=== PATIENT | male | born 1940 | race Caucasian/White ===

== ENCOUNTER → 2016-10-08 | Outpatient (CLI) | payer MEDICARE, BC | END | disposition home or self-care (01) | LOC: NC 09:09 | PROVIDERS: ATTEND Family Medicine | DX: I11.0 Hypertensive heart disease with heart failure (principal); I50.9 Heart failure, unspecified; J44.9 Chronic obstructive pulmonary disease, unspecified; M10.9 Gout, unspecified; Z12.5 Encounter for screening for malignant neoplasm of prostate | CPT/HCPCS: 80053; 80061; 80162; 83880; 84443; 84550; 85025; G0103 ==

== ENCOUNTER → 2017-07-14 | Outpatient (CLI) | payer MEDICARE, BC | END | disposition home or self-care (01) | LOC: NC 09:53 | PROVIDERS: ATTEND Family Medicine | DX: I11.0 Hypertensive heart disease with heart failure (principal); I50.9 Heart failure, unspecified; I48.91 Unspecified atrial fibrillation; N42.9 Disorder of prostate, unspecified; Z12.5 Encounter for screening for malignant neoplasm of prostate | CPT/HCPCS: 80053; 80061; 80162; 85025; G0103 ==

== ENCOUNTER 2017-09-05 07:41 | Inpatient (IN) | payer MEDICARE ==
[2017-09-05] MEDS ORDERED: IBUPROFEN 200 MG TAB PO ONE (07:56)
[2017-09-05] MEDS ORDERED: OSELTAMIVIR 75 MG CAP PO ONE (08:47)
[2017-09-05] MEDS ORDERED: OSELTAMIVIR 75 MG CAP ONE (08:48)
--- NOTE | 2017-09-05 09:14 | RAD ---
EXAM DESCRIPTION: Chest,2 Views CLINICAL HISTORY: Shortness of breath, fever COMPARISON: January 09, 2016 FINDINGS: Frontal and lateral views of the chest. Postsurgical changes with median sternotomy wires. Dual-lead left chest cardiac pacemaker in similar position. Cardiac silhouette shows borderline cardiomegaly without congestive failure. Coronary artery stent is noted. Lung volumes are hyperexpanded, compatible with COPD changes. Prominent interstitial markings are seen bilaterally, most prominent in the right lower lung zone. This most likely represent chronic interstitial scarring. Underlying infiltrate cannot be excluded. Osteopenia and degenerative changes of the thoracic spine. IMPRESSION: 1. Borderline cardiomegaly without congestive failure. 2. COPD changes. 3. Prominent interstitial markings, most prominent in the right lower lung zone. This most likely represent chronic interstitial scarring. Underlying infiltrate cannot be excluded. 4. Osteopenia and degenerative changes of the thoracic spine. Electronically signed by: Ulices Anaya MD 09/05/2017 9:14 AM [employer]
[2017-09-05] MEDS ORDERED: predniSONE 20 MG TAB PO ONE (09:30)
[2017-09-05] MEDS ORDERED: cefTRIAXone SODIUM 1 GM in SODIUM CHL 0.9% 50ML MIN-BAG+ 50 ML IVPB ONE (09:31)
[2017-09-05] MEDS ORDERED: cefTRIAXone SODIUM 1 GM VIAL ONE (09:35)
[2017-09-05] MEDS ORDERED: SODIUM CHL 0.9% 50ML MIN-BAG+ 50 ML IVPB ONE (09:36)
--- NOTE | 2017-09-05 09:38 | ED.PDOC ---
History of Present Illness - General Chief Complaint: Respiratory Problem Stated Complaint: SOB Time Seen by Provider: 09/05/17 07:46 Source: patient, family Exam Limitations: no limitations - History of Present Illness Initial Comments: the patient is a 76-year-old male presenting to the emergency room secondary to progressive symptoms over the last 24 hours including body aches, mild headache, generalized weakness, a rattly cough, and a runny nose. He does have very significant comorbidities. He does have advanced COPD and is oxygen dependent. He did just have 2 breathing treatments prior to his arrival here. The patient reports he did have a little bit of chest pain yesterday but he also does have a long-standing history of stable angina. He is not having any chest pain today. He has not thrown up. He has been compliant with his medications. 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 The patient has had multiple admissions for COPD and pneumonia Timing/Duration: 24 hours Severity: moderate Improving Factors: nothing Worsening Factors: nothing Associated Symptoms: cough, fever/chills, headaches, loss of appetite, malaise, shortness of breath, weakness Allergies/Adverse Reactions: Allergies Ciprofloxacin [From Cipro] Allergy (Verified 09/05/17 07:55) Penicillins Allergy (Verified 09/05/17 07:55) Home Medications: Ambulatory Orders Torsemide 20 mg PO DAILY 06/18/13 Spironolactone [Aldactone] 25 mg PO DAILY #0 tab 06/21/13 Calcium Carbonate-Vitamin D [Calcium 500-125 mg-Unit] 1 tab PO DAILY #0 Cholecalciferol [Vitamin D-3] 1,000 unit PO DAILY 05/16/15 Isosorbide Mononitrate [Imdur] 30 mg PO BID 05/16/15 Formoterol Fumarate [Perforomist] 20 mcg IN BID 06/07/15 Nitroglycerin [Nitrostat] 0.4 mg SL PRN PRN 06/07/15 Polyethylene Glycol 3350 [Miralax] 17 gm PO BEDTIME 06/07/15 Budesonide (Inhalation) [Budesonide] 0.5 mg IN RTBID 12/18/15 Digoxin [Lanoxin Tab] 0.25 mg PO DAILY@1200 #0 tab 01/14/16 Docusate Sodium [Colace] 100 mg PO DAILY #0 cap 01/14/16 LORazepam [Ativan] 0.5 mg PO Q8H PRN #0 tab 01/14/16 predniSONE 10 mg PO DAILY #0 tab 01/14/16 Alendronate Sodium [Fosamax] 70 mg PO WKLY 09/05/17 Allopurinol 300 mg PO DAILY 09/05/17 Apixaban [Eliquis] 2.5 mg PO BID 09/05/17 Diltiazem HCl [Dilt-Xr] 180 mg PO BID 09/05/17 Dimenhydrinate [Dramamine] 50 mg PO PRN 09/05/17 Gabapentin 300 mg PO BEDTIME 09/05/17 Guaifenesin [Mucinex] 600 mg PO PRN PRN 09/05/17 HYDROcodone 5MG/APAP 325MG [[place] 5/325] 0 ea PO .Q4H PRN 09/05/17 Ipratropium [place] 0.02 % IN QID 09/05/17 Magnesium 1 tab PO DAILY 09/05/17 Niacin [Niacin ER] 500 mg PO DAILY 09/05/17 Potassium Chloride Tab [K-Dur] 10 meq PO DAILY 09/05/17 Review of Systems - Review of Systems Constitutional: States: fever, malaise, weakness EENTM: States: nose congestion. Denies: throat pain Respiratory: States: cough, short of breath, wheezing Cardiology: States: no symptoms reported Gastrointestinal/Abdominal: States: no symptoms reported Genitourinary: States: no symptoms reported Musculoskeletal: States: other - generalized body aches Skin: States: no symptoms reported Neurological: States: headache - mild Endocrine: States: no symptoms reported All other Systems: No Change from Baseline Past Medical History (General) - Patient Medical History Hx Seizures: No Hx Stroke: Yes - TIA 2013 Hx Asthma: No Hx of COPD: Yes Hx Cardiac Disorders: Yes - Atrial fib; CAD; ME Hx Congestive Heart Failure: Yes Hx Pacemaker: Yes - pacemaker/defib Hx Hypertension: Yes Hx Diabetes: No Hx MRSA: No Surgical History: cholecystectomy, coronary bypass surgery, pacemaker - Vaccination History Hx Tetanus, Diphtheria Vaccination: No Hx Influenza Vaccination: Yes Hx Pneumococcal Vaccination: Yes Immunizations Up to Date: Yes - Social History Hx Tobacco Use: Yes Hx Alcohol Use: No Hx Substance Use: No Hx Substance Use Treatment: No Hx Depression: No Hx Physical Abuse: No Hx Emotional Abuse: No - Female History Patient : No Family Medical History - Family History Mother Family History: Unknown Living Status: Hx Family Stroke: Yes Hx Cardiac Disease: Yes Physical Exam - Physical Exam General Appearance: Alert, Frail, Ill Appearing Eye Exam: bilateral normal Ears, Nose, Throat: nasal congestion, other - earing is at his baseline but he does have some hearing loss bilaterally Neck: full range of motion, supple Respiratory: chest non-tender, no respiratory distress, no accessory muscle use , other - the patient has a coarse cough. He has diffuse dry rales. He does have occasional scattered wheezes. 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 The patient satting 91% on 2 L. Progress - Progress Progress: 09/05/17 09:31 The patient is a 76-year-old male with a significant long-standing history of coronary artery disease, arrhythmia, advanced COPD, multiple recurrent pneumonias, presenting with early influenza a and some subjective shortness of breath. The patient is oxygenating fairly well on his baseline oxygen supplementation. He does however have a very high risk of rapid deterioration given his history, over the next 24-48 hours. for this reason the patient is going to be admitted for treatment with Tamiflu and he will be receiving a dose of Rocephin primarily prophylactically to make sure we do not develop a bacterial pneumonia on top of his influenza. I was going to use Levaquin however he has a ciprofloxacin allergy. He will of course need his breathing treatments. He is receiving a dose of 20 mg of prednisone as he has had some significant steroid dependency in the past and we want to avoid any adrenal insufficiency and hope to avoid any additional flaring of his COPD. A blood culture is being performed in case we are missing an underlying bacterial infection. I do not believe that is the case at this time. Vital signs are around the patient's baseline at this point, with the exception of the fever. His heart rate is controlled. the patient does have a very mild elevation in his troponin which is not unusual for him. He does have known advanced diffuse coronary artery disease and has been told on multiple occasions that barring a large myocardial infarction, there is no further interventions that would benefit him including further coronary catheterizations. repeating the cardiac enzymes in 8 hours may be warranted but barring a drastic change in enzyme level or obvious cardiac function, no further cardiac intervention is warranted at this time. - Results/Orders Results/Orders: Laboratory Tests 09/05/17 09/05/17 09/05/17 Unknown Unknown Unknown WBC 9.7 RBC 5.17 Hgb 16.5 Hct 50.2 MCV 97.1 H MCH 31.9 H MCHC 32.8 L RDW 17.3 H Plt Count 116 L MPV 9.9 Absolute Neuts (auto) 8.20 H Absolute Lymphs (auto) 0.40 L Absolute Monos (auto) 0.80 Absolute Eos (auto) 0.20 Absolute Basos (auto) 0.10 Neutrophils % 84.2 H Lymphocytes % 4.3 L Monocytes % 8.7 Eosinophils % 2.0 Basophils % 0.8 PT 13.0 H INR 1.150 PTT (SP) 32.9 Sodium 134 L Potassium 4.3 Chloride 92 L Carbon Dioxide 29 Anion Gap 17.3 BUN 20 H Creatinine 1.21 BUN/Creatinine Ratio 16.5 Random Glucose 164 H Serum Osmolality 274.5 L Calcium 9.0 Total Bilirubin 1.1 H AST 23 ALT 21 Alkaline Phosphatase 35 L Creatine Kinase 27 L CK-MB (CK-2) 1.9 CK-MB (CK-2) % Not Reportable Troponin I 0.09 H* B-Natriuretic Peptide 394.0 H* Serum Total Protein 7.1 Albumin 3.8 Globulin 3.3 Albumin/Globulin Ratio 1.2 positive for flu a Chest x-ray shows no definitive new infiltrate in no obvious acute CHF. He does have long-standing changes consistent with COPD. EKG shows mild right axis deviation. Poor R-wave progression. No acute ST segment changes that are negative for ischemia. He does have frequent PACs and PVCs on telemetry monitoring. There is some left atrial dilation. Normal QT interval. Departure - Departure Clinical Impression: Influenza A, Acute exacerbation of COPD with asthma Disposition: Admit Patient Home Medications: Ambulatory Orders Torsemide 20 mg PO DAILY 06/18/13 Spironolactone [Aldactone] 25 mg PO DAILY #0 tab 06/21/13 Calcium Carbonate-Vitamin D [Calcium 500-125 mg-Unit] 1 tab PO DAILY #0 Cholecalciferol [Vitamin D-3] 1,000 unit PO DAILY 05/16/15 Isosorbide Mononitrate [Imdur] 30 mg PO BID 05/16/15 Formoterol Fumarate [Perforomist] 20 mcg IN BID 06/07/15 Nitroglycerin [Nitrostat] 0.4 mg SL PRN PRN 06/07/15 Polyethylene Glycol 3350 [Miralax] 17 gm PO BEDTIME 06/07/15 Budesonide (Inhalation) [Budesonide] 0.5 mg IN RTBID 12/18/15 Digoxin [Lanoxin Tab] 0.25 mg PO DAILY@1200 #0 tab 01/14/16 Docusate Sodium [Colace] 100 mg PO DAILY #0 cap 01/14/16 LORazepam [Ativan] 0.5 mg PO Q8H PRN #0 tab 01/14/16 predniSONE 10 mg PO DAILY #0 tab 01/14/16 Alendronate Sodium [Fosamax] 70 mg PO WKLY 09/05/17 Allopurinol 300 mg PO DAILY 09/05/17 Apixaban [Eliquis] 2.5 mg PO BID 09/05/17 Diltiazem HCl [Dilt-Xr] 180 mg PO BID 09/05/17 Dimenhydrinate [Dramamine] 50 mg PO PRN 09/05/17 Gabapentin 300 mg PO BEDTIME 09/05/17 Guaifenesin [Mucinex] 600 mg PO PRN PRN 09/05/17 HYDROcodone 5MG/APAP 325MG [[place] 5/325] 0 ea PO .Q4H PRN 09/05/17 Ipratropium [place] 0.02 % IN QID 09/05/17 Magnesium 1 tab PO DAILY 09/05/17 Niacin [Niacin ER] 500 mg PO DAILY 09/05/17 Potassium Chloride Tab [K-Dur] 10 meq PO DAILY 09/05/17 Decision To Admit - Decistion To Admit Decision to Admit Reason: Medical Nature Decision to Admit Date: 09/05/17 Decision to Admit Time: 09:39
--- NOTE | 2017-09-05 10:15 | HP ---
SUPERVISING PHYSICIAN: Richard Freeman MD CHIEF COMPLAINT: Shortness of breath. HISTORY OF PRESENT ILLNESS: This is a 76-year-old male patient with a longstanding history of chronic obstructive pulmonary disease on chronic oxygen therapy as well as cardiomyopathy with previously documented ejection fraction of 15%. He came to the Emergency Room with a complaint of two days of shortness of breath along with fever and chills and body aches. He was seen in the Emergency Room here and had labs as well as films done. He had a flu screen which was positive for influenza type A. Chest x-ray did not show any infiltrates although it did show changes consistent with chronic obstructive pulmonary disease. CBC was pretty much unremarkable. Chemistry showed mildly elevated troponin of 0.09, BNP 394. The patient was quite dyspneic on initial presentation, so he was given nebulizer therapy in the Emergency Room. He was referred for admission for the positive influenza screen with chronic obstructive pulmonary disease exacerbation. At the time of examination, the patient is moderately dyspneic. He is unable to speak in full sentences while speaking with me. He is not having any current chest pain. PAST MEDICAL HISTORY: 1. Congestive heart failure with cardiomyopathy and left ventricular ejection fraction of 15%. 2. Coronary artery disease with a previous myocardial infarction. 3. Atrial fibrillation. 4. Chronic obstructive pulmonary disease on home O2. 5. Osteoarthritis. 6. Hyperlipidemia. 7. Gout. 8. Estrella's palsy. PAST SURGICAL HISTORY: 1. Coronary artery bypass graft. 2. Appendectomy. 3. Cholecystectomy. 4. Right hip replacement. 5. Right inguinal hernia repair. CURRENT MEDICATIONS: 1. Fosamax 70 mg p.o. weekly. 2. Allopurinol 300 mg daily. 3. Eliquis 2.5 mg p.o. b.i.d. 4. Budesonide 0.5 mg inhaled b.i.d. 5. Calcium plus D 1 tablet p.o. daily. 6. Vitamin D3 1000 units p.o. daily. 7. Digoxin 0.25 mg p.o. daily. 8. Diltiazem 180 mg p.o. b.i.d. 9. Dramamine 50 mg p.o. p.r.n. 10. Colace 100 mg daily. 11. Formoterol 20 mcg inhaled b.i.d. 12. Gabapentin 300 mg p.o. at bedtime. 13. Guaifenesin 600 mg p.o. p.r.n. 14. Hydrocodone 5/325 1 tablet every 4 hours p.r.n. for pain. 15. Ipratropium bromide 0.02% inhaled q.i.d. 16. Isosorbide mononitrate 300 mg p.o. b.i.d. 17. Ativan 0.5 mg p.o. q.8h. p.r.n. for anxiety. 18. Magnesium 250 mg p.o. daily. 19. Niacin 500 mg p.o. daily. 20. Nitroglycerin sublingual 0.4 mg p.r.n. for chest pain. 21. MiraLAX 17 gram packet p.o. at bedtime. 22. Potassium chloride 10 mEq p.o. daily. 23. Prednisone 10 mg p.o. daily. 24. Spironolactone 25 mg p.o. daily. 25. Torsemide 20 mg p.o. daily. ALLERGIES: CIPRO, PENICILLIN. FAMILY HISTORY: Coronary artery disease, lung disease, strokes. SOCIAL HISTORY: He was a previous smoker, but quit multiple years ago. No alcohol, no illicit drugs. REVIEW OF SYSTEMS: CONSTITUTIONAL: Positive for fever and chills. Positive for malaise. HEENT: Positive for nasal congestion. No headaches, vision changes, ear pain or throat pain. NECK: No neck stiffness, neck swelling or neck pain. RESPIRATORY: Positive for shortness of breath, cough. No pleuritic chest pain. CARDIOVASCULAR: No chest pain, palpitations or peripheral edema. GASTROINTESTINAL: No nausea, vomiting, diarrhea, constipation or abdominal pain. GENITOURINARY: No dysuria, frequency or flank pain. INTEGUMENTARY: No rashes, lesions or wounds. ENDOCRINE: No polydipsia, polyuria, polyphagia. No heat or cold intolerance. MUSCULOSKELETAL: No joint pain, muscle cramps or joint swelling. HEMATOLOGIC: Positive for easy bruising. No transfusion reactions in the past. PHYSICAL EXAMINATION: VITAL SIGNS: Blood pressure 132/64. Heart rate 85. Respiratory rate 28. Temperature max in the Emergency Room was 100.8. Oxygen saturation 94%. GENERAL: This is a 76-year-old male who is acutely ill in appearance at this time. HEENT: Normocephalic, atraumatic. Pupils are equal and reactive. No nasal drainage. Throat with moist buccal mucosa. NECK: Supple. Midline trachea. No current jugular venous distention. CHEST: Symmetrical with equal rise and fall of the chest with inspiration and expiration. Lung sounds with coarse sounds bilaterally and faint expiratory wheezing. CARDIOVASCULAR: Regular rate and rhythm. Normal S1, S2. ABDOMEN: Soft. Positive bowel sounds. No tenderness to palpation. GENITOURINARY: Deferred. EXTREMITIES: Lower extremities with no significant edema. Capillary refill is about 3 seconds. NEUROLOGIC: The patient is alert. Moves all extremities. LABORATORY: Labs and films are as discussed in history of present illness. ASSESSMENT: 1. Chronic obstructive pulmonary disease exacerbation. 2 Influenza type A. 3. Hypertension. 4. History of cardiomyopathy with ejection fraction of 15%. 5. History of atrial fibrillation on chronic Eliquis therapy. PLAN: 1. At this time, we will treat for chronic obstructive pulmonary disease exacerbation with empiric antibiotics including Rocephin along with nebulizer therapy and intravenous corticosteroids. 2. We will start Tamiflu as well. The patient did get a dose in the Emergency Room. We will continue this. 3. We will continue his home medications which include antihypertensives. Currently, his blood pressure is acceptable. 4. He does have a history of atrial fibrillation, however, the 12-lead EKG shows normal sinus rhythm with PACs at this time. We will continue home medications as well as his Eliquis. 5. We will monitor for signs and symptoms of congestive heart failure exacerbation although at this time it appears the majority of his issues are chronic obstructive pulmonary disease related. However, we will continue his home medications which include diuretics. 6. Code status is discussed and the patient will be full code at this time. [facility][id number] [facility]
[2017-09-05] MEDS ORDERED: NITROGLYCERIN 0.4 MG 25 EA TAB SL PRN (11:19)
[2017-09-05] MEDS ORDERED: HYDROcodone 5MG/APAP 325MG 1 EA TAB PO PRN (11:19)
[2017-09-05] MEDS ORDERED: LORazepam 0.5 MG TAB PO PRN (11:19)
[2017-09-05] MEDS ORDERED: IV SET AND CAP CHANGE INJ INJ SCH (11:30)
[2017-09-05] MEDS ORDERED: DIGOXIN 0.25 MG TAB PO SCH (12:00)
[2017-09-05] MEDS: IPRATROPIUM BROMIDE NEBS 0.5 MG/2.5 ML VIAL NEB SCH ×3 (12:24→21:08)
[2017-09-05] MEDS: LEVALBUTEROL NEBS 0.63 MG/3 ML VIAL NEB SCH ×3 (12:24→20:28)
[2017-09-05] MEDS: SODIUM CHLORIDE 0.9% (FLUSH) 10 ML SYG IV PRN ×3 (16:06→23:41)
[2017-09-05] MEDS: methylPREDNISolone SODIUM SUC 40 MG/ML VIAL IV SCH ×3 (16:06→23:41)
[2017-09-05] MEDS ORDERED: methylPREDNISolone SODIUM SUC 40 MG/ML VIAL IV ONE (20:00)
[2017-09-05] MEDS: BUDESONIDE NEBS 0.5 MG/2 ML VIAL NEB SCH (20:28)
[2017-09-05] MEDS: FORMOTEROL FUMARATE 20 MCG INH SCH (20:29)
[2017-09-05] MEDS ORDERED: diltiaZEM HCL CD 180 MG CAP PO SCH (21:00)
[2017-09-05] MEDS: CARVEDILOL 3.125 MG TAB PO SCH (21:01)
[2017-09-05] MEDS: APIXABAN 2.5 MG TAB PO SCH (21:01)
[2017-09-05] MEDS: POLYETHYLENE GLYCOL 3350 17 GM PCKT PO SCH (21:02)
[2017-09-05] MEDS: guaiFENesin ER TAB 600 MG TAB PO SCH (21:02)
[2017-09-05] MEDS: OSELTAMIVIR 75 MG CAP PO SCH (21:02)
[2017-09-05] MEDS: ISOSORBIDE MONONITRATE (IMDUR) 30 MG TAB PO SCH (21:02)
[2017-09-05] MEDS: GABAPENTIN 300 MG CAP PO SCH (21:02)
[2017-09-06] MEDS: IPRATROPIUM BROMIDE NEBS 0.5 MG/2.5 ML VIAL NEB SCH ×7 (00:05→23:33)
[2017-09-06] MEDS: LEVALBUTEROL NEBS 0.63 MG/3 ML VIAL NEB SCH ×7 (00:05→23:33)
[2017-09-06] MEDS ORDERED: OMEPRAZOLE CAP 20 MG CAP ONE (02:16)
[2017-09-06] MEDS: methylPREDNISolone SODIUM SUC 40 MG/ML VIAL IV SCH ×4 (05:48→23:38)
[2017-09-06] MEDS: OMEPRAZOLE CAP 20 MG CAP PO SCH (06:14)
--- NOTE | 2017-09-06 07:04 | RAD ---
EXAM DESCRIPTION: Chest,1 View CLINICAL HISTORY: COPD COMPARISON: September 05, 2017 FINDINGS: A multilead cardiac pacemaker remains in place. Again seen are postoperative changes in the mediastinum. The heart is at the upper limits of normal size, not significantly changed from the previous study. Is mild blunting of the costophrenic angles bilaterally, also not significantly changed from yesterday. Bibasilar interstitial prominence is noted. Emphysematous changes were better appreciated on yesterday's two-view chest radiograph. There is no pneumothorax or acute fracture. IMPRESSION: Bibasilar interstitial prominence, unchanged from yesterday. Findings may represent subsegmental atelectasis or scarring, but mild pulmonary vascular congestion should also be considered. Small bilateral pleural effusions versus pleural thickening or scarring in both lung bases, also stable. Electronically signed by: Kiko Williamson MD 09/06/2017 7:02 AM [facility]
[2017-09-06] MEDS ORDERED: SODIUM CHL 0.9% 50ML MIN-BAG+ 50 ML IVPB ONE (07:36)
[2017-09-06] MEDS ORDERED: cefTRIAXone SODIUM 1 GM VIAL ONE (07:38)
[2017-09-06] MEDS: POTASSIUM CHLORIDE 20 MEQ TAB PO SCH (07:57)
[2017-09-06] MEDS: FORMOTEROL FUMARATE 20 MCG INH SCH ×2 (08:44→19:52)
[2017-09-06] MEDS: BUDESONIDE NEBS 0.5 MG/2 ML VIAL NEB SCH ×2 (08:44→19:53)
[2017-09-06] MEDS: CARVEDILOL 12.5 MG TAB PO SCH (08:50)
[2017-09-06] MEDS: SPIRONOLACTONE 25 MG TAB PO SCH (08:50)
[2017-09-06] MEDS: TORSEMIDE TAB 20 MG PO SCH (08:50)
[2017-09-06] MEDS: APIXABAN 2.5 MG TAB PO SCH ×2 (08:50→20:20)
[2017-09-06] MEDS: guaiFENesin ER TAB 600 MG TAB PO SCH ×2 (08:50→20:20)
[2017-09-06] MEDS: ISOSORBIDE MONONITRATE (IMDUR) 30 MG TAB PO SCH ×2 (08:50→20:20)
[2017-09-06] MEDS: ALLOPURINOL 300 MG TAB PO SCH (08:50)
[2017-09-06] MEDS: DOCUSATE SODIUM 100 MG CAP PO SCH (08:50)
[2017-09-06] MEDS: OSELTAMIVIR 75 MG CAP PO SCH ×2 (08:50→20:21)
[2017-09-06] MEDS: CALCIUM CARBONATE-VITAMIN D 500 MG TAB PO SCH (08:50)
[2017-09-06] MEDS: cefTRIAXone SODIUM 1 GM in SODIUM CHL 0.9% 50ML MIN-BAG+ 50 ML IVPB SCH (08:51)
[2017-09-06] MEDS ORDERED: AZITHROMYCIN 250 MG TAB PO ONE (08:58)
[2017-09-06] MEDS: SODIUM CHLORIDE 0.9% 1000ML 1,000 ML IVS PRN (09:58)
--- NOTE | 2017-09-06 11:44 | PN ---
SUPERVISING PHYSICIAN: Richard Freeman MD DATE: 09/06/17 SUBJECTIVE: Mr. Torres feels considerably better this morning than he did when he came in. He slept fairly well. His shortness of breath is less than it was. He states he was pretty sweaty in bed last night before he actually went to sleep and I feel like he probably had a fever that resolved at that point. OBJECTIVE: VITAL SIGNS: Blood pressure 115/75. Heart rate 94. Respiratory rate 22. Temperature 97.4. Oxygen saturation 92%. GENERAL: Mr. Torres is a 76-year-old male patient who is still mildly tachypneic , but in no severe distress at this time. HEENT: Normocephalic, atraumatic. Pupils are equal and reactive. No nasal drainage. Throat with moist mucosa. NECK: Supple. Midline trachea. No visible jugular venous distention. CHEST: Symmetrical with equal rise and fall of the chest with inspiration and expiration. Lungs sounds still with some mild expiratory wheezing and some basilar rales. CARDIOVASCULAR: Regular rate and rhythm. Normal S1, S2. ABDOMEN: Soft. Positive bowel sounds. GENITOURINARY: Deferred. EXTREMITIES: Lower extremities with no edema. NEUROLOGIC: The patient is alert. LABORATORY: WBC 10.3, hemoglobin 16.2, hematocrit 48.2, platelet count 116. Sodium 137, potassium 4.7, chloride 95, CO2 29, BUN 22, creatinine 1.16, glucose 246, calcium 9.1, magnesium 2.3. RADIOLOGY: Chest x-ray shows bibasilar interstitial prominence which is unchanged from yesterday. There is no consolidation noted at this time, no significant change from yesterday. ASSESSMENT: 1. Chronic obstructive pulmonary disease exacerbation. 2 Influenza type A. 3. Hypertension. 4. History of cardiomyopathy with ejection fraction of 15%. 5. History of atrial fibrillation on Eliquis therapy. PLAN: 1. We will continue current therapies. Continue the Rocephin. However, I am reducing his corticosteroids. 2. Continue Tamiflu for a total of 5 days. 3. Continue home medications as currently scheduled. 4. I have ordered a liter of normal saline at a slow rate. He does have cardiomyopathy and we will need to be cautious with this, however, he has not really urinated very much and I feel like he has a mild degree of dehydration. 5. We will recheck labs and chest x-ray tomorrow morning as well. [facility][id number] [facility]
[2017-09-06] MEDS: DIGOXIN 0.125 MG TAB PO SCH (12:16)
[2017-09-06] MEDS: SODIUM CHLORIDE 0.9% (FLUSH) 10 ML SYG IV PRN (12:17)
[2017-09-06] MEDS: CARVEDILOL 3.125 MG TAB PO SCH (20:20)
[2017-09-06] MEDS: GABAPENTIN 300 MG CAP PO SCH (20:20)
[2017-09-06] MEDS: POLYETHYLENE GLYCOL 3350 17 GM PCKT PO SCH (20:21)
[2017-09-07] MEDS: SODIUM CHLORIDE 0.9% 1000ML 1,000 ML IVS PRN (00:20)
[2017-09-07] MEDS: LEVALBUTEROL NEBS 0.63 MG/3 ML VIAL NEB SCH ×3 (04:29→13:03)
[2017-09-07] MEDS: IPRATROPIUM BROMIDE NEBS 0.5 MG/2.5 ML VIAL NEB SCH ×3 (04:29→13:03)
[2017-09-07] MEDS: methylPREDNISolone SODIUM SUC 40 MG/ML VIAL IV SCH ×2 (06:05→12:02)
[2017-09-07] MEDS: OMEPRAZOLE CAP 20 MG CAP PO SCH (06:05)
--- NOTE | 2017-09-07 07:44 | RAD ---
EXAM DESCRIPTION: Chest,1 View CLINICAL HISTORY: COPD COMPARISON: September 06, 2017 IMPRESSION: Single AP portable upright view of the chest shows enlargement of the cardiac silhouette without pulmonary vascular congestion. Sternotomy wires are stable. Left subclavian multilead transvenous cardiac pacemaker is stable. Lungs are normally aerated with chronic appearing increased interstitial markings again seen. Mild blunting of costophrenic angles is again seen suggesting small bilateral pleural effusions or chronic pleural thickening. No acute appearing infiltrates are identified. Electronically signed by: Kumar Vargas MD 09/07/2017 7:43 AM FINANCIAL SERVICES COUNSELOR
[2017-09-07] MEDS: POTASSIUM CHLORIDE 20 MEQ TAB PO SCH (07:52)
[2017-09-07] MEDS ORDERED: SODIUM CHL 0.9% 50ML MIN-BAG+ 50 ML IVPB ONE (08:34)
[2017-09-07] MEDS ORDERED: cefTRIAXone SODIUM 1 GM VIAL ONE (08:36)
[2017-09-07] MEDS: cefTRIAXone SODIUM 1 GM in SODIUM CHL 0.9% 50ML MIN-BAG+ 50 ML IVPB SCH (09:03)
[2017-09-07] MEDS: CALCIUM CARBONATE-VITAMIN D 500 MG TAB PO SCH (09:04)
[2017-09-07] MEDS: ISOSORBIDE MONONITRATE (IMDUR) 30 MG TAB PO SCH (09:04)
[2017-09-07] MEDS: ALLOPURINOL 300 MG TAB PO SCH (09:04)
[2017-09-07] MEDS: guaiFENesin ER TAB 600 MG TAB PO SCH (09:04)
[2017-09-07] MEDS: TORSEMIDE TAB 20 MG PO SCH (09:04)
[2017-09-07] MEDS: DOCUSATE SODIUM 100 MG CAP PO SCH (09:04)
[2017-09-07] MEDS: SPIRONOLACTONE 25 MG TAB PO SCH (09:05)
[2017-09-07] MEDS: APIXABAN 2.5 MG TAB PO SCH (09:05)
[2017-09-07] MEDS: OSELTAMIVIR 75 MG CAP PO SCH (09:05)
[2017-09-07] MEDS: CARVEDILOL 12.5 MG TAB PO SCH (09:05)
[2017-09-07] MEDS: FORMOTEROL FUMARATE 20 MCG INH SCH (10:23)
[2017-09-07] MEDS: BUDESONIDE NEBS 0.5 MG/2 ML VIAL NEB SCH (10:23)
[2017-09-07 11:30] VITALS: O2SAT 98
[2017-09-07 11:58] VITALS: BP 117/71; TEMP 97.6
[2017-09-07] MEDS: DIGOXIN 0.125 MG TAB PO SCH (12:02)
--- NOTE | 2017-09-07 21:28 | DS ---
SUPERVISING PHYSICIAN: Richard Freeman M.D. ADMISSION DIAGNOSIS: 1. Chronic obstructive pulmonary disease exacerbation. 2. Influenza type A. 3. Hypertension. 4. History of cardiomyopathy with an ejection fraction of 15%. 5. History of atrial fibrillation on chronic Eliquis therapy. DISCHARGE DIAGNOSIS: 1. Chronic obstructive pulmonary disease exacerbation. 2. Influenza type A. 3. Hypertension. 4. History of cardiomyopathy with an ejection fraction of 15%. 5. History of atrial fibrillation on chronic Eliquis therapy. HOSPITAL COURSE: This is a 76 year-old male patient with a longstanding history of COPD on chronic oxygen therapy at home as well as ischemic cardiomyopathy with an ejection fraction of 15%. He came to the Emergency Room with a 2 day history of shortness of breath along with fever and chills as well as body aches. He was seen in the Emergency Room. His Influenza screen was positive for type A. He also was clearly having a COPD exacerbation. Upon initial evaluation, the patient was quite tachypneic and was using a lot of accessory muscles. We put him on therapy for COPD exacerbation including empiric antibiotics with Rocephin as well as nebulizers and steroids. Over the course of the 48 hours that followed, the patient intervally improved pretty rapidly to his baseline. At baseline, he still had some difficulty breathing using chronic oxygen at home. However, he did not spike any really high fevers. His white blood cell count went up a little bit to 11.7, however he was on steroids as well. Chest x-ray has not revealed any pneumonic process. On day of discharge, the patient is back to his baseline pretty much. He wants to go home and continue p.o. medications at that time. PLAN: Discharge condition is fair. Discharge activity as tolerated. DIET: Resume usual diet. Discharge medications include a prednisone taper. Antibiotic is doxycycline 100 mg p.o. b.i.d. Also finishing up his Tamiflu for the next 3 days, he has taken it for the last 24 hours. Follow[address] appointment [address] Valera on 09/14/17 at 1:45 PM. #[id number] [facility]
[2017-09-12] MEDS ORDERED: ALENDRONATE SODIUM TAB 70 MG TAB PO SCH (09:00)
== END 2017-09-07 13:10 | disposition home health service (06) | DRG 192 ==
LOC: ER 07:41 → MS 10:13
PROVIDERS: ADMIT Nurse Practitioner; ATTEND Nurse Practitioner
DX: J44.1 Chronic obstructive pulmonary disease with (acute) exacerbation (principal); J09.X2 Influenza due to identified novel influenza A virus with other respiratory manifestations; E86.0 Dehydration; I48.91 Unspecified atrial fibrillation; I25.5 Ischemic cardiomyopathy; I50.9 Heart failure, unspecified; I11.0 Hypertensive heart disease with heart failure; I25.2 Old myocardial infarction; M19.90 Unspecified osteoarthritis, unspecified site; E78.5 Hyperlipidemia, unspecified; M10.9 Gout, unspecified; I25.119 Atherosclerotic heart disease of native coronary artery with unspecified angina pectoris; Z96.641 Presence of right artificial hip joint; Z95.1 Presence of aortocoronary bypass graft; Z79.02 Long term (current) use of antithrombotics/antiplatelets; Z99.81 Dependence on supplemental oxygen; Z79.891 Long term (current) use of opiate analgesic; Z79.52 Long term (current) use of systemic steroids; Z79.899 Other long term (current) drug therapy; Z88.0 Allergy status to penicillin; Z88.1 Allergy status to other antibiotic agents; Z86.73 Personal history of transient ischemic attack (TIA), and cerebral infarction without residual deficits; Z95.0 Presence of cardiac pacemaker; Z87.01 Personal history of pneumonia (recurrent)

== ENCOUNTER 2017-09-09 11:20 | Emergency (ER) | payer MEDICARE ==
[2017-09-09] MEDS: IPRATROPIUM/ALBUTEROL 3 ML VIAL NEB ONE (11:38)
--- NOTE | 2017-09-09 12:49 | RAD ---
EXAM DESCRIPTION: Chest,1 View CLINICAL HISTORY: COPD R/O PNEUMO COMPARISON: September 07, 2017. FINDINGS: Portable semiupright view of the thorax was acquired. Left chest wall battery pack for multi lead electrocardiac/pacemaker type device is stable in appearance. There is borderline increased cardiac silhouette size. Coronary stents are present. Increased perihilar vascular markings are seen. No volume occupying airspace consolidation is present. Correlate for elevated volume status. Pleural plaques identified with calcification can be seen with asbestos exposure or remote pleurodesis. Sternotomy suture wires noted. No acute osseous pathology is demonstrated. Right upper quadrant surgical clips. IMPRESSION: No specific radiographic findings to explain the patient's presenting symptoms. Chronic findings described above. Electronically signed by: Tavo Cardona MD 09/09/2017 12:49 PM [facility]
[2017-09-09] MEDS: ADENOSINE INJ 6 MG/2 ML SYG IV ONE (13:18)
[2017-09-09] MEDS ORDERED: diltiaZEM DRIP 125 MG/25 ML VIAL IVPB ONE (13:20)
[2017-09-09] MEDS ORDERED: SODIUM CHLORIDE 0.9% 100ML 100 ML IVPB ONE (13:38)
--- NOTE | 2017-09-09 13:39 | ED.PDOC ---
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 ATRIAL FLUTTER /FIB WAS RECENTLY HOSPITALIZED DISCHARGED YESTERDAY RETURNS TODAY FOR EVALUATION OF INCREASING DIFFICULTY BREATHING HE WAS FOUND TO BE HYPOXIC BY EMT O2 SATURATION WAS IN THE LOW 80S AND HIGH 70S - History of Present Illness Timing/Duration: constant Severity: moderate Possible Cause: occasional episodes Worsening Factors: nothing Associated Symptoms: lightheadedness, shortness of breath Respiratory Risk Factors: exposure to illness Allergies/Adverse Reactions: Allergies Ciprofloxacin [From Cipro] Allergy (Verified 09/05/17 07:55) Penicillins Allergy (Verified 09/05/17 07:55) Home Medications: Ambulatory Orders Torsemide 20 mg PO DAILY 06/18/13 Spironolactone [Aldactone] 25 mg PO DAILY #0 tab 06/21/13 Calcium Carbonate-Vitamin D [Calcium 500-125 mg-Unit] 1 tab PO DAILY #0 Cholecalciferol [Vitamin D-3] 1,000 unit PO DAILY 05/16/15 Isosorbide Mononitrate [Imdur] 30 mg PO BID 05/16/15 Formoterol Fumarate [Perforomist] 20 mcg IN BID 06/07/15 Nitroglycerin [Nitrostat] 0.4 mg SL PRN PRN 06/07/15 Polyethylene Glycol 3350 [Miralax] 17 gm PO BEDTIME PRN 06/07/15 Budesonide (Inhalation) [Budesonide] 0.5 mg IN RTBID 12/18/15 Docusate Sodium [Colace] 100 mg PO DAILY #0 cap 01/14/16 LORazepam [Ativan] 0.5 mg PO Q8H PRN #0 tab 01/14/16 Alendronate Sodium [Fosamax] 70 mg PO WKLY 09/05/17 Allopurinol 300 mg PO DAILY 09/05/17 Apixaban [Eliquis] 2.5 mg PO BID 09/05/17 Carvedilol [Coreg] 6.25 mg PO BEDTIME 09/05/17 Carvedilol [Coreg] 12.5 mg PO DAILY@0900 09/05/17 Digoxin [Lanoxin] 0.125 mg PO DAILY 09/05/17 Diltiazem HCl Coated Beads [Diltiazem Cd] 120 mg PO BID 09/05/17 Dimenhydrinate [Dramamine] 50 mg PO PRN 09/05/17 Gabapentin 300 mg PO BEDTIME 09/05/17 Guaifenesin [Mucinex] 600 - 1,200 mg PO PRN PRN 09/05/17 HYDROcodone 5MG/APAP 325MG [[place] 5/325] 1 tablet PO Q4H PRN 09/05/17 Ipratropium [place] 1 inh IN QID 09/05/17 Magnesium 250 mg PO DAILY 09/05/17 Niacin [Slo-Niacin] 500 mg PO DAILY 09/05/17 Omeprazole [Prilosec Cap] 20 mg PO ACBK 09/05/17 Potassium Chloride Tab [K-Dur] 10 meq PO DAILY 09/05/17 Doxycycline (Monohydrate) [Doxycycline Monohydrate] 100 mg PO BID 10 Days #20 tab 09/07/17 Oseltamivir Capsule [Tamiflu] 75 mg PO BID 3 Days #6 capsule 09/07/17 Prednisone [Deltasone] 20 mg PO ONCE 9 Days #18 tab 09/07/17 predniSONE 10 mg PO DAILY #0 tab 09/07/17 Review of Systems - Review of Systems Constitutional: States: weakness EENTM: States: no symptoms reported Respiratory: States: short of breath Cardiology: States: palpitations Gastrointestinal/Abdominal: States: no symptoms reported Genitourinary: States: no symptoms reported Musculoskeletal: States: no symptoms reported Skin: States: no symptoms reported Neurological: States: no symptoms reported Endocrine: States: no symptoms reported Hematologic/Lymphatic: States: no symptoms reported Past Medical History (General) - Patient Medical History Hx Seizures: No Hx Stroke: Yes - TIA 2013 Hx Asthma: No Hx of COPD: Yes Hx Cardiac Disorders: Yes Hx Congestive Heart Failure: Yes Hx Pacemaker: Yes - pacemaker/defib Hx Hypertension: Yes Hx Diabetes: No Hx MRSA: No - Vaccination History Hx Tetanus, Diphtheria Vaccination: No Hx Influenza Vaccination: Yes Hx Pneumococcal Vaccination: Yes - Social History Hx Tobacco Use: Yes Hx Alcohol Use: No Hx Substance Use: No Hx Substance Use Treatment: No Hx Depression: No Hx Physical Abuse: No Hx Emotional Abuse: No - Female History Patient : No Family Medical History - Family History Mother Family History: Unknown Living Status: Hx Family Stroke: Yes Hx Cardiac Disease: Yes Physical Exam - Physical Exam General Appearance: Alert, Frail ENT Exam: normal ENT inspection, hearing grossly normal, TMs normal, pharynx normal Neck: non-tender, full range of motion Respiratory: chest non-tender, wheezing Cardiovascular/Chest: normal peripheral pulses, regular rate, rhythm, no edema, no gallop, tachycardia Extremity: normal range of motion, non-tender, normal inspection, no pedal edema 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, no motor/sensory deficits, alert, normal mood/affect Skin Exam: normal color Lymphatic: no adenopathy Progress - Progress Progress: 09/09/17 21:40 9 20 PM [facility] WAS CONTACTED I DISCUSSED WITH DR Brodie ASHER ABOUT THE TROPONIN THAT INCREASED TO 2.4 FROM .O8 PT REMAINS ASYMPTOMATIC HIS CARDIZEM INFUSION IS BEING WEANED OFF FROM 15 TO NOW AT 5 MG / HOUR HE WAS GIVEN LOVENOX 80 MG SUB Q AND IV NITROGLYCERIN AND WILL BE TRANSFERRED TO ED AT [facility] - Results/Orders Results/Orders: PT WAS GIVEN ADENOSINE 6 MG NO RESPONSE AFTER ADENOSINE MONITOR DID REVEAL ATRIAL FIB AT THIS TIME IV CARDIZEM WAS STARTED HIS RATE WAS CONTROLLED HE WILL BE TRANSFERRED TO [facility] TO DRJ. 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 Copy, Patient Portal Self Enrollment Referrals: Steven Valera MD [Primary Care Provider] - 1-2 Weeks Home Medications: Ambulatory Orders Torsemide 20 mg PO DAILY 06/18/13 Spironolactone [Aldactone] 25 mg PO DAILY #0 tab 06/21/13 Calcium Carbonate-Vitamin D [Calcium 500-125 mg-Unit] 1 tab PO DAILY #0 Cholecalciferol [Vitamin D-3] 1,000 unit PO DAILY 05/16/15 Isosorbide Mononitrate [Imdur] 30 mg PO BID 05/16/15 Formoterol Fumarate [Perforomist] 20 mcg IN BID 06/07/15 Nitroglycerin [Nitrostat] 0.4 mg SL PRN PRN 06/07/15 Polyethylene Glycol 3350 [Miralax] 17 gm PO BEDTIME PRN 06/07/15 Budesonide (Inhalation) [Budesonide] 0.5 mg IN RTBID 12/18/15 Docusate Sodium [Colace] 100 mg PO DAILY #0 cap 01/14/16 LORazepam [Ativan] 0.5 mg PO Q8H PRN #0 tab 01/14/16 Alendronate Sodium [Fosamax] 70 mg PO WKLY 09/05/17 Allopurinol 300 mg PO DAILY 09/05/17 Apixaban [Eliquis] 2.5 mg PO BID 09/05/17 Carvedilol [Coreg] 6.25 mg PO BEDTIME 09/05/17 Carvedilol [Coreg] 12.5 mg PO DAILY@0900 09/05/17 Digoxin [Lanoxin] 0.125 mg PO DAILY 09/05/17 Diltiazem HCl Coated Beads [Diltiazem Cd] 120 mg PO BID 09/05/17 Dimenhydrinate [Dramamine] 50 mg PO PRN 09/05/17 Gabapentin 300 mg PO BEDTIME 09/05/17 Guaifenesin [Mucinex] 600 - 1,200 mg PO PRN PRN 09/05/17 HYDROcodone 5MG/APAP 325MG [[place] 5/325] 1 tablet PO Q4H PRN 09/05/17 Ipratropium [place] 1 inh IN QID 09/05/17 Magnesium 250 mg PO DAILY 09/05/17 Niacin [Slo-Niacin] 500 mg PO DAILY 09/05/17 Omeprazole [Prilosec Cap] 20 mg PO ACBK 09/05/17 Potassium Chloride Tab [K-Dur] 10 meq PO DAILY 09/05/17 Doxycycline (Monohydrate) [Doxycycline Monohydrate] 100 mg PO BID 10 Days #20 tab 09/07/17 Oseltamivir Capsule [Tamiflu] 75 mg PO BID 3 Days #6 capsule 09/07/17 Prednisone [Deltasone] 20 mg PO ONCE 9 Days #18 tab 09/07/17 predniSONE 10 mg PO DAILY #0 tab 09/07/17 Transfer to Outside Facility - Transfer Information Accepting Provider:: DR RAYSA ASHER Accepting Facility: [facility] Reason for Transfer: specialized care not available - ATRIAL FLUTTER / FIBRILLATION WITH [facility] COPD 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
[2017-09-09] MEDS: diltiaZEM DRIP 125 MG in SODIUM CHLORIDE 0.9% 100ML 100 ML IVPB SCH (13:45)
[2017-09-09] MEDS: BUDESONIDE NEBS 0.5 MG/2 ML VIAL NEB ONE (17:56)
[2017-09-09] MEDS: IPRATROPIUM BROMIDE NEBS 0.5 MG/2.5 ML VIAL NEB ONE (17:56)
[2017-09-09] MEDS ORDERED: ENOXAPARIN SODIUM 80 MG/0.8 ML SYG SUBCU ONE (21:19)
[2017-09-09] MEDS: NITROGLYCERIN/D5W IV 50,000 MCG in PREMIX BOTTLE 1 BOTTLE IVS SCH (21:25)
[2017-09-09 21:27] VITALS: O2SAT 95
[2017-09-09 21:49] VITALS: BP 139/78; TEMP 98.3
== END 2017-09-09 22:08 | disposition short-term general hospital (02) ==
LOC: ER 11:20
DX: I48.91 Unspecified atrial fibrillation (principal); I48.92 Unspecified atrial flutter; J44.9 Chronic obstructive pulmonary disease, unspecified; Z95.1 Presence of aortocoronary bypass graft; Z86.73 Personal history of transient ischemic attack (TIA), and cerebral infarction without residual deficits; I11.0 Hypertensive heart disease with heart failure; I50.9 Heart failure, unspecified; Z87.891 Personal history of nicotine dependence; Z95.810 Presence of automatic (implantable) cardiac defibrillator
CPT/HCPCS: 36415; 71045; 80048; 82550; 82553; 84484; 85025; 93005; 94640; J0153; J1650; J7050; J7620; J7626; J7644